=== PATIENT | female | born 1950 | race Caucasian/White ===

== ENCOUNTER 2018-04-22 14:16 | Outpatient (CLI) | payer MEDICARE | END 2018-04-22 20:51 | disposition home or self-care (01) | LOC: SMA 14:16 | PROVIDERS: ATTEND Family Medicine | DX: Z12.31 Encounter for screening mammogram for malignant neoplasm of breast (principal) | CPT/HCPCS: 77067 ==

== ENCOUNTER 2018-05-13 08:50 | Outpatient (CLI) | payer MEDICARE | END 2018-05-13 19:19 | disposition home or self-care (01) | LOC: SUS 08:50 | PROVIDERS: ATTEND Family Medicine | DX: N63.10 Unspecified lump in the right breast, unspecified quadrant (principal); N63.20 Unspecified lump in the left breast, unspecified quadrant | CPT/HCPCS: 76641 ==

== ENCOUNTER 2019-08-28 07:24 | Outpatient (CLI) | payer BC | END 2019-08-28 20:49 | disposition home or self-care (01) | LOC: SMA 07:24 | PROVIDERS: ATTEND Family Medicine | DX: Z12.31 Encounter for screening mammogram for malignant neoplasm of breast (principal); N63.13 Unspecified lump in the right breast, lower outer quadrant | CPT/HCPCS: 76642; 77067 ==